=== PATIENT | female | born 2005 | race Caucasian/White ===

== ENCOUNTER 2024-07-02 11:32 | Outpatient (REF) | payer OTHER, SELFPAY ==
[2024-07-02 13:40] LABS: Estimated Average Glucose 97 mg/dL
[2024-07-02 14:33] LABS: Cortisol Random 10.4 ug/dL
[2024-07-02 14:34] LABS: Thyroid Stimulating Hormone 0.97 uIU/mL (0.32-4.0)
[2024-07-02 14:47] LABS: Free T4 (Free Thyroxine) 1.02 ng/dL (0.71-1.85); Insulin 26 uU/mL (2-29)
[2024-07-03 08:48] LABS: Triiodothyronine T3 Free 3.4 pg/mL (2.3-4.2)
[2024-07-03 09:49] LABS: DHEA Sulfate 146 mcg/dL (44-286); Prolactin 5.8 ng/mL
[2024-07-03 18:13] LABS: Thyroid Peroxidase Antibodies 11 IU/mL (<9)
[2024-07-07 15:57] LABS: Thyroid Stimulating Immunoglob <89 % baseline (<140)
== END 2024-07-02 11:33 | disposition home or self-care (01) ==
LOC: HO.MANLDS 11:32
PROVIDERS: Visit Provider Physician Assistant
DX: Z13.1 Encounter for screening for diabetes mellitus (principal); R63.5 Abnormal weight gain; Z83.49 Family history of other endocrine, nutritional and metabolic diseases
CPT/HCPCS: 36415; 82533; 82627; 83036; 83525; 84146; 84439; 84443; 84445; 84481; 86376